=== PATIENT | female | born 1935 | race Caucasian/White ===

== ENCOUNTER 2017-02-27 07:02 | Inpatient (IN) ==
[2017-02-24 13:14] LABS: Appearance,Urine HAZY; Bilirubin,Urine NEG (NEG); Color,Urine YELLOW; Glucose,Urine (UA) NEGATIVE (NEG); Leukocyte Esterase,Urine NEG /uL (NEG); Nitrate,Urine NEG (NEG); Protein,Urine NEG (NEG); Specific Gravity,Urine 1.014 (1.000-1.035); Urine Blood NEG mg/dL (<0.03); Urobilinogen,Urine NEG (NEG)
[2017-02-24 14:03] LABS: Basophils # (Auto) 0 K/mcL (0.0-0.3); Basophils % (Auto) 0.5 % (0.0-2.0); Eosinophils # (Auto) 0.2 K/mcL (0.0-0.7); Eosinophils % (Auto) 2.4 % (0.0-7.0); Granulocytes % (Auto) 60.1 % (38.0-78.0); Lymphocytes # (Auto) 2.4 K/mcL (1.5-4.8); Lymphocytes % (Auto) 29.1 % (15.5-49.0); Mean Cell Volume 94.2 fL (80.0-100.0); Mean Corpuscular HGB Conc 33.9 g/dL (31.0-36.0); Mean Corpuscular Hemoglobin 31.9 pg (26.0-34.0); Monocytes # (Auto) 0.6 K/mcL (0.1-0.9); Monocytes % (Auto) 7.9 % (1.0-12.0); Platelet Count 285 K/mcL (140-440); RBC 4.13 M/mcL (4.00-5.20); Red Cell Distribution Width 13.5 % (11.5-14.5)
[2017-02-24 14:29] LABS: Blood Urea Nitrogen 23 mg/dl (8-23)
[~2017-02-27 07:02] MED LIST: ACETAMINOPHEN 500 MG TABLET PO SCH; KETOROLAC 30 MG, ROPIVACAINE HCL/PF 49.5 ML, EPINEPHrine 0.5 MG, 0.9 % SODIUM CHLORIDE ... IJ SCH; PREGABALIN 75 MG CAPSULE PO SCH; ceFAZolin 1 GM VIAL IV SCH; oxyCODONE 10 MG TAB.ER.12H PO SCH
[2017-02-27] MEDS ORDERED: NALOXONE HCL 0.4 MG/ML VIAL IV PRN (08:07)
[2017-02-27] MEDS ORDERED: ONDANSETRON 4 MG/2 ML VIAL IV PRN ×2 (08:07→12:28)
[2017-02-27] MEDS ORDERED: IPRATROPIUM/ALBUTEROL 3 ML AMPUL.NEB NEB PRN ×2 (08:07→12:27)
[2017-02-27] MEDS ORDERED: diphenhydrAMINE 50 MG/ML VIAL IV PRN (08:07)
[2017-02-27] MEDS ORDERED: PROMETHAZINE 25 MG/ML VIAL IM PRN (08:07)
[2017-02-27] MEDS ORDERED: MEPERIDINE 25 MG/ML SYRINGE IV PRN ×2 (08:07→12:27)
[2017-02-27] MEDS ORDERED: fentaNYL 100 MCG/2 ML VIAL IV PRN ×2 (08:07→12:27)
[2017-02-27] MEDS ORDERED: METHOCARBAMOL 1,000 MG/10 ML VIAL IV PRN ×2 (08:07→12:27)
[2017-02-27] MEDS ORDERED: PROMETHAZINE 25 MG/ML VIAL IV PRN ×2 (08:07→12:27)
[2017-02-27] MEDS ORDERED: ePHEDrine 50 MG/ML AMPUL IV PRN (08:07)
[2017-02-27] MEDS ORDERED: LACTATED RINGERS 250 ML IV PRN (08:07)
[2017-02-27] MEDS ORDERED: MEPERIDINE 50 MG/ML SYRINGE IM PRN (08:07)
[2017-02-27] MEDS ORDERED: FLUMAZENIL 0.1 MG/ML ML IV PRN (08:07)
[2017-02-27] MEDS ORDERED: BENZOCAINE/MENTHOL 1 LOZENGE PO PRN ×3 (08:07→12:28)
[2017-02-27] MEDS ORDERED: LACTATED RINGERS 1,000 ML IV SCH ×2 (08:15→12:30)
[2017-02-27] MEDS ORDERED: SCOPOLAMINE 1 PATCH PATCH TOPICAL ONE (09:48)
[2017-02-27] MEDS ORDERED: GLYCOPYRROLATE 0.2 MG/ML VIAL IV ONE (10:15)
[2017-02-27] MEDS ORDERED: KETAMINE 100 MG/ML ML IV ONE (10:15)
[2017-02-27] MEDS ORDERED: TRANEXAMIC ACID 1,000 MG/10 ML VIAL IV ONE (10:15)
[2017-02-27] MEDS ORDERED: fentaNYL 100 MCG/2 ML VIAL IV ONE (10:15)
[2017-02-27] MEDS ORDERED: LIDOCAINE HCL/PF 100 MG/5 ML SYRINGE IV ONE (10:15)
[2017-02-27] MEDS ORDERED: PROPOFOL 200 MG/20 ML VIAL IV ONE (10:15)
[2017-02-27] MEDS ORDERED: ROPIVACAINE HCL/PF 30 ML VIAL IJ ONE (10:15)
[2017-02-27] MEDS ORDERED: ONDANSETRON 4 MG/2 ML VIAL IV ONE (10:15)
[2017-02-27] MEDS ORDERED: MIDAZOLAM 5 MG/5 ML VIAL IV ONE (10:15)
[2017-02-27] MEDS ORDERED: PHENYLEPHRINE 10 MG/ML VIAL IV ONE (10:15)
[2017-02-27] MEDS ORDERED: GENTAMICIN SULFATE 800 MG/20 ML VIAL IR ONE (10:44)
[2017-02-27] MEDS ORDERED: BISACODYL 10 MG SUPP.RECT PR PRN (12:28)
[2017-02-27] MEDS ORDERED: FLEETS ADULT ENEMA PR PRN (12:28)
[2017-02-27] MEDS ORDERED: POLYETHYLENE GLYCOL 3350 17 GM PACKET PO PRN (12:28)
[2017-02-27] MEDS ORDERED: MAGNESIUM HYDROXIDE 30 ML ORAL.SUSP PO PRN (12:28)
[2017-02-27] MEDS ORDERED: HYDROcodone/APAP 10/325MG TABLET PO PRN ×2 (12:28→12:37)
[2017-02-27] MEDS ORDERED: TRANEXAMIC ACID 1,000 MG/10 ML VIAL IV SCH (12:28)
[2017-02-27] MEDS ORDERED: HYDROmorphone 2 MG/ML SYRINGE IV PRN (12:28)
--- NOTE | 2017-02-27 12:28 | Brief Operative Note ---
Date of procedure: 02/27/17 Pre-op diagnosis: Right knee djd severe Post-op diagnosis: same Procedure: right tka with beena robot Grafts/Implants: Yes Anesthesia: GETA Findings: severe djd Surgeon: Arya Andrea Auto Winder: Jay Abarca Estimated blood loss (cc): 20 Tourniquet Time (Minutes): 85 Specimens Removed/Pathology: none sent Condition: stable Disposition: PACU
[2017-02-27] MEDS ORDERED: CALCIUM POLYCARBOPHIL 1 TABLET PO PRN (12:32)
[2017-02-27] MEDS ORDERED: [UNRECOGNIZED DRUG - OTHER] PO PRN (12:32)
[2017-02-27] MEDS ORDERED: FLUTICASONE PROPIONATE SPRAY.NAS NS PRN (12:32)
[2017-02-27] MEDS ORDERED: oxyCODONE/APAP 5/325MG TABLET PO PRN (12:36)
--- NOTE | 2017-02-27 13:11 | XRay Report ---
CLINICAL INFORMATION: Postop total knee prostheses COMPARISON: None. FINDINGS: Total knee prostheses is anatomically aligned. No osseous abnormalities. Soft tissues swelling seen as expected. IMPRESSION: Negative Interpreted and Authenticated by: Aiden Rivera 02/27/17
--- NOTE | 2017-02-27 13:49 | Operative Note ---
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 POSTOPERATIVE DIAGNOSIS: Right knee severe degenerative arthritis in all three compartments with very severe osteophytes and contracture. PROCEDURE: Right total knee arthroplasty using the JOSE M robot. SURGEON: Arya Andrea MD. LAST MODEL DEPARTMENT SUPERVISOR: Darren Abarca PA-C. ANESTHESIA: General LMA anesthesia. COMPLICATIONS: None. TOURNIQUET TIME: 85 minutes. DESCRIPTION OF PROCEDURE: The patient was brought to the operating room and put to sleep with general LMA anesthesia. Once asleep, the patient had the right leg sterilely prepped and draped in the usual sterile fashion. We made a midline incision, a mid vastus approach and exposed the joint that was severely worn with a contracture of about 15 degrees. We irrigated thoroughly and then placed two pins above and below the knee. We placed our sensors, centered the hip rotation, medial and lateral malleolus and intraarticular pins. Thirty points on the femur were registered after removing osteophytes and balancing the bone, and the knee was balanced. We positioned the implants to accommodate for the balancing. We then brought in the robot. It was registered and then we made our distal femoral cut, our posterior chamfer cut. Once this was done, we made our anterior and posterior chamfer cuts after reregistering the new blade and our tibial cut. All these bony fragments were removed. At this point, we then put into place with the rotation from the computer for the baseplate. Once this was positioned, we then trialed the size 4 femur and a standard thickness poly. This seemed to balance a little tight. We did a small release medially of the deep head of the medial collateral ligament. This seemed to help. With this we were able to go up to a size 11. This was a little loose. We went to a 13 that seemed to accommodate full range of motion and balanced in flexion and extension. We irrigated thoroughly. We then cemented into place a size 4 femur, a size 4 tibial baseplate with a 13 mm poly with a deep dish. We released the remnants of the posterior cruciate ligament. We irrigated thoroughly and then we resurfaced the patella. It measured a total thickness of 22 mm. We cut this to 13 mm and then cemented into place a 33 mm patellar button. We irrigated thoroughly. We then cemented into place a size 4 femur, a size 4 tibial baseplate, a 13 mm poly. Excess cement was removed. A 33 mm patellar button was cemented. We kept the knee at 45 degrees until all cement was dry. We irrigated thoroughly. We then closed the mid vastus approach with #2 FiberWire and a double-armed #1 Maxon. We closed the skin with 2-0 Vicryl and 3-0 Monocryl and terence. Standard bandage was applied. Tourniquet time was 85 minutes. Blood loss was about 20 mL. ONEL:[email or web address] maria Job ID: [id number] Doc ID: [id number] Arya Andrea MD
[2017-02-27] MEDS: 0.45 % SODIUM CHLORIDE 1,000 ML IV SCH (14:19)
[2017-02-27] MEDS: 0.9 % SODIUM CHLORIDE 10 ML SYRINGE IV SCH ×2 (14:20→22:50)
[2017-02-27] MEDS ORDERED: MEPERIDINE 25 MG/ML SYRINGE IV ONE (15:46)
[2017-02-27] MEDS: KETOROLAC 15 MG/ML VIAL IV SCH ×2 (17:18→23:50)
[2017-02-27] MEDS: ceFAZolin 1 GM VIAL IV SCH (17:33)
[2017-02-27] MEDS: SENNOSIDES 1 TABLET PO SCH (20:19)
[2017-02-27] MEDS: ACETAMINOPHEN 325 MG TABLET PO PRN (20:19)
[2017-02-27] MEDS: ASPIRIN 325 MG ENTERIC COATED TABLET PO SCH (20:20)
[2017-02-27] MEDS: DOCUSATE SODIUM 100 MG CAPSULE PO SCH (20:20)
[2017-02-27] MEDS: SERTRALINE 50 MG TABLET PO SCH (20:20)
[2017-02-27] MEDS ORDERED: TEMAZEPAM 15 MG CAPSULE PO PRN (21:00)
[2017-02-27] MEDS: LEVOTHYROXINE 100 MCG TABLET PO SCH (21:37)
[2017-02-27] MEDS: oxyCODONE 10 MG TAB.ER.12H PO SCH (21:38)
[2017-02-28] MEDS: 0.45 % SODIUM CHLORIDE 1,000 ML IV SCH ×3 (01:59→18:03)
[2017-02-28] MEDS: ceFAZolin 1 GM VIAL IV SCH (02:08)
[2017-02-28] MEDS: KETOROLAC 15 MG/ML VIAL IV SCH ×4 (05:55→23:51)
[2017-02-28] MEDS: 0.9 % SODIUM CHLORIDE 10 ML SYRINGE IV SCH ×3 (06:04→22:02)
[2017-02-28] MEDS: CYANOCOBALAMIN (VITAMIN B-12) 500 MCG TABLET PO SCH (08:00)
[2017-02-28] MEDS: MULTIVIT,THER IRON,CA,FA & MIN 1 TABLET PO SCH (08:00)
[2017-02-28] MEDS: CALCIUM W/VIT D3 500 MG TABLET PO SCH (08:00)
[2017-02-28] MEDS: PANTOPRAZOLE 40 MG TABLET PO SCH (08:00)
[2017-02-28] MEDS: FISH OIL 1,000 MG CAPSULE PO SCH (08:00)
[2017-02-28] MEDS: DOCUSATE SODIUM 100 MG CAPSULE PO SCH ×2 (08:00→21:33)
[2017-02-28] MEDS: VITAMIN D3 5,000 UNIT CAPSULE PO SCH (08:00)
[2017-02-28] MEDS: ASPIRIN 325 MG ENTERIC COATED TABLET PO SCH ×2 (08:00→21:32)
[2017-02-28] MEDS: MAGNESIUM OXIDE 400 MG TABLET PO SCH (08:01)
[2017-02-28] MEDS: ASCORBIC ACID 500 MG TABLET PO SCH (08:01)
[2017-02-28] MEDS: oxyCODONE 10 MG TAB.ER.12H PO SCH ×2 (08:04→22:02)
[2017-02-28] MEDS: PYRIDOXINE 100 MG TABLET PO SCH (08:10)
[2017-02-28] MEDS: VITAMIN E (DL,TOCOPHERYL ACET) 400 UNIT CAPSULE PO SCH (08:10)
[2017-02-28] MEDS: LACTOBACILLUS 1 CAPSULE PO SCH (08:11)
[2017-02-28] MEDS ORDERED: MELOXICAM 7.5 MG TABLET PO SCH (09:00)
[2017-02-28] MEDS ORDERED: ZINC PICOLINATE PO SCH (09:00)
[2017-02-28] MEDS ORDERED: ASPIRIN 81 MG TAB.CHEW PO SCH (09:00)
[2017-02-28] MEDS ORDERED: RED RICE YEAST PO SCH (09:00)
[2017-02-28] MEDS ORDERED: PNEUMOCOCCAL 23-VAL P-SAC VAC 0.5 ML VIAL IM ONE (09:00)
[2017-02-28] MEDS ORDERED: UBIDECARENONE 300 MG PO SCH (09:00)
--- NOTE | 2017-02-28 10:04 | Orthopedic Progress Note ---
Subjective Patient information: Note initiated : 02/28/17 at 10:02 am Service Date, if different from initiated Date: [] Patient: Tsering Moran 81 y/o F admitted on 02/27/17 for Right Total Knee Arthroplasty - Robotic. Chief Complaint: [minimal pain and rom is 52 tolerating a regular diet] Objective Vital signs: Vital Signs Temp Pulse Resp BP Pulse Ox 02/28/17 08:37 97.2 F 20 120/74 94 02/28/17 08:00 93 02/28/17 04:00 97.9 F 68 16 134/73 94 02/28/17 00:18 98.2 F 70 16 122/66 94 02/27/17 20:00 97.4 F 68 16 124/66 95 02/27/17 16:30 125/72 93 02/27/17 16:28 71 96 02/27/17 15:30 167/75 98 02/27/17 15:00 185/79 94 02/27/17 14:30 163/79 99 02/27/17 14:15 144/77 99 02/27/17 14:00 141/75 98 02/27/17 13:45 139/76 95 02/27/17 13:33 98.2 F 67 15 152/70 99 02/27/17 13:20 67 18 160/72 98 02/27/17 13:05 70 12 183/77 99 02/27/17 12:40 97.6 F 71 12 161/76 96 02/27/17 11:55 166/69 95 Intake and Output 02/27/17 02/28/17 02/28/17 21:59 05:59 13:59 Intake Total 340 / 340 1800 / 1800 980 / 980 Output Total 675 / 675 250 / 250 Balance -335 / -335 1800 / 1800 730 / 730 Intake: IV 1000 / 1000 Sodium Chloride 0.45% 1, 1000 / 1000 000 ml @ 100 mls/hr IV . Q10H [facility] Rx#:[id number] Oral 340 / 340 800 / 800 980 / 980 Output: Urine Catheter Amount 500 / 500 Void Amount 125 / 125 250 / 250 Emesis 50 / 50 Other: Meal snack Breakfast Percent of Meal Consumed 100% 100% Feeding Ability Independent # Voids 1 Weight 193 lb 8 oz Intake & Output: Intake & Output 0502/28/17 02/28/17 21:59 05:59 13:59 Intake Total 340 / 340 1800 / 1800 980 / 980 Output Total 675 / 675 250 / 250 Balance -335 / -335 1800 / 1800 730 / 730 Weight 193 lb 8 oz Intake: IV 1000 / 1000 Sodium Chloride 0.45% 1, 1000 / 1000 000 ml @ 100 mls/hr IV . Q10H [facility] Rx#:[id number] Oral 340 / 340 800 / 800 980 / 980 Output: Urine Catheter Amount 500 / 500 Void Amount 125 / 125 250 / 250 Emesis 50 / 50 Other: Meal snack Breakfast Percent of Meal Consumed 100% 100% Feeding Ability Independent # Voids 1 Incision: Yes healing Incision clean and dry: Yes Dressing: Yes clean Weight bearing status: full Neurological exam IM: Yes oriented X3, Yes neurovascular intact Extremities exam IM: Yes Foot pink and warm (Plan is to discharge to home today and follow up in 2 weeks and use cpm machine), Yes neurovascular intact - Labs CBC & BMP: 02/28/17 05:20 02/24/17 12:03 Labs: Orthopedic Labs 02/24/17 12:04 PT 13.1 INR 1.0 APTT 42 H 02/28/17 02/24/17 05:20 12:04 Hgb 13.2 Hct 33.2 L 38.9
[2017-02-28] MEDS: traMADol 50 MG TABLET PO PRN ×2 (12:50→21:32)
[2017-02-28] MEDS: ACETAMINOPHEN 325 MG TABLET PO PRN (17:35)
[2017-02-28] MEDS: SERTRALINE 50 MG TABLET PO SCH (21:32)
[2017-02-28] MEDS: SENNOSIDES 1 TABLET PO SCH (21:32)
[2017-02-28] MEDS: LEVOTHYROXINE 100 MCG TABLET PO SCH (21:33)
[2017-03-01] MEDS ORDERED: traMADol 50 MG TABLET PO PRN ×2 (00:03→00:09)
[2017-03-01] MEDS ORDERED: traMADol 50 MG TABLET PO ONE (04:43)
[2017-03-01] MEDS: 0.9 % SODIUM CHLORIDE 10 ML SYRINGE IV SCH (06:05)
[2017-03-01] MEDS: KETOROLAC 15 MG/ML VIAL IV SCH ×2 (06:05→11:58)
[2017-03-01] MEDS: CALCIUM W/VIT D3 500 MG TABLET PO SCH (08:18)
[2017-03-01] MEDS: FISH OIL 1,000 MG CAPSULE PO SCH (08:18)
[2017-03-01] MEDS: VITAMIN D3 5,000 UNIT CAPSULE PO SCH (08:19)
[2017-03-01] MEDS: PYRIDOXINE 100 MG TABLET PO SCH (08:19)
[2017-03-01] MEDS: LACTOBACILLUS 1 CAPSULE PO SCH (08:19)
[2017-03-01] MEDS: DOCUSATE SODIUM 100 MG CAPSULE PO SCH (08:19)
[2017-03-01] MEDS: MAGNESIUM OXIDE 400 MG TABLET PO SCH (08:19)
[2017-03-01] MEDS: CYANOCOBALAMIN (VITAMIN B-12) 500 MCG TABLET PO SCH (08:19)
[2017-03-01] MEDS: ASPIRIN 325 MG ENTERIC COATED TABLET PO SCH (08:19)
[2017-03-01] MEDS: PANTOPRAZOLE 40 MG TABLET PO SCH (08:19)
[2017-03-01] MEDS: VITAMIN E (DL,TOCOPHERYL ACET) 400 UNIT CAPSULE PO SCH (08:19)
[2017-03-01] MEDS: ASCORBIC ACID 500 MG TABLET PO SCH (08:19)
[2017-03-01] MEDS: MULTIVIT,THER IRON,CA,FA & MIN 1 TABLET PO SCH (08:19)
[2017-03-01] MEDS ORDERED: PNEUMOCOCCAL 23-VAL P-SAC VAC 0.5 ML VIAL IM ONE (09:45)
--- NOTE | 2017-03-16 11:53 | Discharge Summary ---
DATE OF ADMISSION: 02/27/2017 DATE OF DISCHARGE: 03/01/2017 ADMITTING DIAGNOSIS: Right knee degenerative osteoarthritis. DISCHARGE DIAGNOSIS: Right knee degenerative osteoarthritis status post total knee arthroplasty. DISCHARGE CONDITION: Stable. COMPLICATIONS: None. CONSULTATIONS: None. PROCEDURE PERFORMED: The total knee arthroplasty was completed on the date of admission. The procedure went without complications and there was minimal blood loss. Following the procedure the patient was taken to recovery room in stable condition. When deemed stable, was taken to the hospital floor for further observation and recovery. HISTORY OF PRESENT ILLNESS: This pleasant patient has exhausted conservative care measures in the office that has included trials with anti-inflammatories, pain medications, injections and physical therapy. The patient has discussed non-operative and operative options with Dr. Andrea at length. Due to the exhausting conservative measures the patient desired to proceed forth with operative care. DISCHARGE PHYSICAL EXAMINATION: VITAL SIGNS: Stable as above. GENERAL: Patient is awake, alert and oriented x3. HEENT: Head was normocephalic. NECK: Supple, no adenopathy or thyromegaly. CHEST: CTA, no wheezing, rhonchi or rales. HEART: NSR, no gallops, rubs or murmurs. MUSCULOSKELETAL: Lower extremities revealed grossly intact motor exam. NEUROLOGIC: Deep tendon response and light touch, motor, neurosensory exam was stable. SKIN: The incision was intact and the dressing had been changed to the Acticoat dressing. There were no abnormal skin markings, lesions, erythema, rashes or other skin breakdown. DISCHARGE INSTRUCTIONS/MEDICATIONS: The patient received our standard written discharge instruction sheet. These instructions included information regarding weightbearing status, activity level, diet, wound care, physical therapy instructions, bathing restrictions, shower recommendations, follow-up guidelines, driving restrictions and monitoring the wound for signs of infection that could include but not necessarily to fevers above 101.5, sweats, chills, redness, increased pain or drainage. Should any of these occur the patient was educated to contact our office at once. MEDICATIONS: The patient was restarted on normal primary care medications. Patient was also prescribed Lavallette 10/325 mg with instructions for 1 to 2 tabs by mouth every 4 to 6 hours as needed for pain, quantity 75 with 2 refills. The patient will be placed on 325 mg aspirin, 1 a day for 30 days post surgery. [facility] will monitor the patient's PT/INR. FOLLOWUP: Patient will follow up at [facility] 2 weeks from surgery for a postop wound check and staple removal. They will be able to certain follow up sooner with any problems or concerns. BAP:[email or web address] Job ID: [id number] Doc ID: [id number] Abhishek Crenshaw PA-C
== END 2017-03-01 12:07 | disposition home health service (06) | DRG 470 ==
LOC: MEDSUR 07:02
PROVIDERS: ADMIT Orthopaedic Surgery; ATTEND Orthopaedic Surgery